=== PATIENT | female | born 1995 | race African-American/Black ===

== ENCOUNTER 2016-12-18 10:17 | Emergency (ER) | payer MEDICAID ==
[~2016-12-18 10:17] MED LIST: MACR100C2 PO; PREN1TAB63 PO; VENTAER INH; ZOFR8TAB4 SL
--- NOTE | 2016-12-18 10:52 | PD ---
HPI Chief Complaint Haven't felt baby move Date Seen: Dec 18, 2016 Time Seen: 10:46 (Niels Durán MD R2) Travel History International Travel<30 Days: No Contact w/Intl Traveler<30Days: No Known Affected Area: No (Niels Durán MD R2) History of Present Illness HPI 21-year-old at roughly 17 weeks gestational age based on last menstrual period of uncertain time but possibly around August 20. She presents today because she is and has not been able to feel the baby move thus far. Reportedly, She has called [facility] and [facility] and has not been able to get an appointment. No vaginal bleeding, no loss of fluid. Para: 1 : 2 (Niels Durán MD R2) History Past Medical History Narrative Medical Asthma (Niels Durán MD R2) Obstetric History Obstetric History First : at 38 weeks secondary to likely preeclampsia ( however patient is not sure, but this is consistent with her story). (Niels Durán MD R2) Past Surgical History Narrative Surgical 1 (Niels Durán MD R2) Family History Family History: Negative (Niels Durán MD R2) Social History Alcohol Use: No Tobacco Use: No Substance Abuse: No (iNels Durán MD R2) Allergies-Medications (Allergen,Severity, Reaction): Coded Allergies: No Known Allergies (Unverified , 12/18/16) Home Meds Active Scripts Albuterol 18 GM Inh (Ventolin Hfa 18 GM Inh)90 Mcg/Act Aer2 Puff INH Q4-6H PRN ( SHORTNESS OF BREATH) #1 INHALER Ref 0 Prov:Lenin Roque MD 09/26/16 Multivit-Min W/Fe-FA ( Vitamins 0.8 mg)1 Tab Tab1 Tab PO DAILY 30 Days Prov:Lenin Roque MD 09/26/16 Discontinued Scripts Ondansetron Odt (Zofran Odt)8 Mg Tab8 Mg SL Q8H PRN (NAUSEA OR VOMITING) #10 TAB Ref 0 Prov:Nahomi García MD 10/09/16 Nitrofurantoin Monohydrate Macrocrystals (Macrobid)100 Mg Dpl350 Mg PO BID 7 Days Ref 0 Prov:Aime Baker MD 10/09/16 Physical Exam Narrative GENERAL: Well-nourished, well-developed patient. SKIN: Warm and dry. HEAD: Normocephalic and atraumatic. EYES: No scleral icterus. No injection or drainage. ENT: No nasal drainage noted. Mucous membranes pink. Airway patent. NECK: Supple, trachea midline. No JVD. CARDIOVASCULAR: Regular rate and rhythm without murmurs, gallops, or rubs. RESPIRATORY: Breath sounds equal bilaterally. No accessory muscle use. ABDOMEN/GI: Abdomen soft, non-tender, bowel sounds present, no rebound, no guarding. Gravid to 16 weeks EXTREMITIES: No cyanosis or edema. BACK: Nontender without obvious deformity. No CVA tenderness. NEUROLOGICAL: Awake and alert. Motor and sensory grossly within normal limits. Five out of 5 muscle strength in all muscle groups. Normal speech. (Niels Durán MD R2) Data Data Vital Signs Reviewed: Yes (Niels Durán MD R2) [facility] Medical Record Reviewed: Yes Interpretation(s) 21-year-old at roughly 16-17 weeks gestational age presents because she has not felt her baby move. However, she has not filled her baby move this entire and this is common given how early she is. 1. Intrauterine Bedside Doppler Patient given instructions to follow-up with [facility] or [facility] or other OB provider of her choice. Discussed with Dr. Banuelos (Niels Durán MD R2) Attending Attestation Patient seen and evaluated with resident under direct supervision, agree with assessment and plan. (Sp Ravi MD) Diagnosis Diagnosis: Primary Impression: First trimester Disposition: DISCHARGE HOME Condition: Good Niels Durán MD R2 Dec 18, 2016 10:52 Sp Ravi MD Dec 18, 2016 12:10
[2016-12-18 10:57] VITALS: RESP 18; TEMP 98.5
[2016-12-18 10:58] VITALS: BP 119/65; PULSE 104
--- NOTE | 2016-12-18 12:03 | HHI.FPPN ---
Addendum to progress note ADDENDUM Reason for addendum: Additonal documentation Additional information heart tones verified at 140 bpm labs drawn Patient given instructions to follow with [facility] (Niels Durán MD R2) Niels Durán MD R2 Dec 18, 2016 12:03 Sp Ravi MD Dec 18, 2016 12:11
[2016-12-18 14:04] LABS: AUTOMATED NEUTROPHIL # 3.8 TH/MM3 (1.8-7.7); BASOPHIL % 0.5 % (0.0-2.0); EOSINOPHIL # 0.1 TH/MM3 (0-0.4); EOSINOPHIL % 1.8 % (0.0-4.0); HEMATOCRIT 32.6 % (35.0-46.0); HEMO FLAGS DIFF FINAL; LYMPH % 30.2 % (9.0-44.0); LYMPHOCYTE # 1.9 TH/MM3 (1.0-4.8); MEAN CELL VOLUME 81.3 FL (80.0-100.0); MEAN CORPUSCULAR HEMOGLOBIN 26.2 PG (27.0-34.0); MEAN CORPUSCULAR HGB CONC 32.2 % (32.0-36.0); MONO % 8.3 % (0.0-8.0); NEUT % 59.2 % (16.0-70.0); PLATELET COUNT 219 TH/MM3 (150-450); RED BLOOD COUNT 4.01 MIL/MM3 (4.00-5.30); RED CELL DISTRIBUTION WIDTH 17.4 % (11.6-17.2); WHITE BLOOD COUNT 6.3 TH/MM3 (4.0-11.0)
[2016-12-18 14:48] LABS: RUBELLA STATUS IMMUNE (IMMUNE)
[2016-12-21 15:14] LABS: RAPID PLASMA REAGIN SCREEN NON-REACTIVE (NON-REACTVE)
[2017-04-05] MEDS ORDERED: FERRTAB2 PO (10:50)
== END 2016-12-18 12:19 | disposition home or self-care (01) ==
LOC: HOBED 10:17
DX: Z03.79 Encounter for other suspected maternal and fetal conditions ruled out (principal); Z3A.17 17 weeks gestation of pregnancy
CPT/HCPCS: 36415; 80074; 85025; 86592; 86703; 86762; 86850; 86900; 86901

== ENCOUNTER 2017-03-30 20:43 | Emergency (ER) | payer MEDICAID ==
[~2017-03-30 20:43] MED LIST changes: -MACR100C2 PO; -ZOFR8TAB4 SL
--- NOTE | 2017-03-30 21:43 | PD ---
HPI Chief Complaint Low back pain Date Seen: March 30, 2017 Time Seen: 21:40 Travel History International Travel<30 Days: No Contact w/Intl Traveler<30Days: No Known Affected Area: No History of Present Illness HPI 21-year-old female who is at 32 weeks and 1 day comes in complaining of low back pain with radiation to the left lower quadrant for the past several days. Patient points to the lower sacral area and states that it hurts worse when she walks and when she is standing for long periods time. Denies vaginal bleeding or contractions. Patient sees [facility] and states that she recently failed her 1 hour glucose tolerance test and she is set to take a three -hour glucose tolerance. Last went almost to term but ended in a section Para: 1 : 2 History Past Medical History Narrative Medical Mild asthma on no medication Obstetric History Obstetric History section Past Surgical History Narrative Surgical Family History Family History: Negative Social History Alcohol Use: No Tobacco Use: No Substance Abuse: No Allergies-Medications (Allergen,Severity, Reaction): Coded Allergies: No Known Allergies (Unverified , 12/18/16) Home Meds Active Scripts Albuterol 18 GM Inh (Ventolin Hfa 18 GM Inh)90 Mcg/Act Aer2 Puff INH Q4-6H PRN ( SHORTNESS OF BREATH) #1 INHALER Ref 0 Prov:Lenin Roque MD 09/26/16 Multivit-Min W/Fe-FA ( Vitamins 0.8 mg)1 Tab Tab1 Tab PO DAILY 30 Days Prov:Lenin Roque MD 09/26/16 Review of Systems Except as stated in HPI: all other systems reviewed are Neg Physical Exam Narrative GENERAL: Well-nourished, well-developed patient. SKIN: Warm and dry. HEAD: Normocephalic and atraumatic. EYES: No scleral icterus. No injection or drainage. ENT: No nasal drainage noted. Mucous membranes pink. Airway patent. NECK: Supple, trachea midline. No JVD. CARDIOVASCULAR: Regular rate and rhythm without murmurs, gallops, or rubs. RESPIRATORY: Breath sounds equal bilaterally. No accessory muscle use. BREASTS: Bilateral exam showed no masses , no retractions, no nipple discharge. ABDOMEN/GI: Abdomen soft, non-tender, bowel sounds present, no rebound, no guarding Gravid to [-32] weeks size Fundal Height: [-] GENITOURINARY: External Genitalia: intact and normal in appearance BUS glands: [-Normal] speculum examination notes no discharge or bleeding and fibronectin was collected Cervix: [Closed-] Dilatation: [Closed-] Effacement: [-0%] Station: [--3] Presentation: [-Vertex] Membranes: [intact ] Uterine Contractions: [-Irritability] FHT's: Category: [1-] Baseline: 140 Reactive: Moderate Variability: Moderate Decels: Absent EXTREMITIES: No cyanosis or edema. BACK: Nontender without obvious deformity. No CVA tenderness. NEUROLOGICAL: Awake and alert. Motor and sensory grossly within normal limits. Five out of 5 muscle strength in all muscle groups. Normal speech. Data Data Labs Laboratory Tests Test 03/30/17 03/30/17 21:30 21:50 Fibronectin NEGATIVE Urine Color YELLOW Urine Turbidity CLEAR Urine pH 6.5 Urine Specific [place] 1.036 Urine Protein 30 mg/dL Urine Glucose (UA) NEG mg/dL Urine Ketones TRACE mg/dL Urine Occult Blood MOD Urine Nitrite NEG Urine Bilirubin NEG Urine Urobilinogen 4.0 MG/DL Urine Leukocyte Esterase NEG Urine RBC 87 /hpf Urine WBC 1 /hpf Urine Squamous Epithelial 1 /hpf Cells Urine Mucus MOD /lpf Microscopic Urinalysis Comment CULT NOT INDICATED MDM Plan 21 yo female at 32 weeks negative FFN with musculoskeletal pain. Some RBC' s in urine but patient is now significantly improved after Tylenol Will call in Macrobid and Flexeril Patient is transferring care to [facility] due to concerns regarding her abnormal 1hr GTT Diagnosis Diagnosis: Primary Impression: 32 weeks gestation of Additional Impressions: Back pain affecting in third trimester Hematuria due to cystitis Disposition: DISCHARGE HOME Scripts Cyclobenzaprine (Flexeril)10 Mg Tab10 Mg PO BID #20 TAB Ref 20 Prov:Diamond Ledesma MD 03/30/17 Nitrofurantoin Monohydrate Macrocrystals 100 Mg [id number] Mg PO BID #14 CAP Ref 0 Prov:Diamond Ledesma MD 03/30/17 Diamond Ledesma MD March 30, 2017 21:43
[2017-03-30] MEDS ORDERED: ACETAMINOPHEN 325 MG TAB PO ONE (21:45)
[2017-03-30 22:11] LABS: BLOOD, URINE MOD (NEG); COMMENT (UR) CULT NOT INDICATED; CULTURE IF INDICATED CULT NOT INDICATED; GLUCOSE,URINE NEG (NEG); KETONE, URINE TRACE mg/dL (NEG); MUCUS URINE MOD /lpf (OCC); NITRITE,URINE NEG (NEG); PH, URINE 6.5 (5.0-8.5); SQUAMOUS EPITHELIAL CELL URINE 1 /hpf (0-5); URINE COLOR YELLOW (YELLW/STRAW)
[2017-03-30] MEDS ORDERED: CYCL1TAB29 PO (22:54)
[2017-03-30] MEDS ORDERED: NITR100C4 PO (22:54)
[2017-04-05] MEDS ORDERED: FERRTAB2 PO (10:50)
== END 2017-03-30 23:30 | disposition home or self-care (01) ==
LOC: HOBED 20:43
DX: O23.13 Infections of bladder in pregnancy, third trimester (principal); Z3A.32 32 weeks gestation of pregnancy
CPT/HCPCS: 81001; 82731; 99284

== ENCOUNTER 2017-05-09 08:19 | Inpatient (IN) | payer MEDICAID ==
[2017-05-09] VITALS (26 sets, daily range): BP systolic 111–140; BP diastolic 62–83; PULSE 53–125; RESP 14–19; TEMP 97.4–98.3; O2SAT 95–100
[2017-05-09] MEDS ORDERED: LACTATED RINGER'S 1000 ML INJ 1,000 ML IV SCH ×3 (09:02→16:43)
[2017-05-09] MEDS ORDERED: LACTATED RINGER'S 1000 ML INJ 1,000 ML IV ONE (09:41)
[2017-05-09] MEDS ORDERED: OXYTOCIN 10 UNIT/ML AMP ONE (09:55)
[2017-05-09] MEDS ORDERED: ceFAZolin INJ 1,000 MG VIAL ONE (09:55)
--- NOTE | 2017-05-09 09:56 | HHI.HP ---
History & Physical H&P [facility] Patient Name: Fina Melendez Unit Number: [id number] Date of : 1995 Patient Status: Registered Emergency Room Attending Doctor: Faby Mullen MD HPI HPI Chief Complaint contractions Date Seen: May 09, 2017 Travel History International Travel<30 Days: No Contact w/Intl Traveler<30Days: No Known Affected Area: No History of Present Illness HPI This is a 22y/o at 37w6d with previous c/s who presents to the [facility] with c/o contractions since 3am, she denies vaginal bleeding or leakage of fluid with reports of active movements. She denies vaginal bleeding or leakage of fluid with reports of active movements. Pt declining . care with [facility], complicated by: 1. young multigravida 2. previous c/s times 1 3. previous complicated by PreE 4. transfer in at 33w from [facility] 5. abn 1 hr glucose, normal 3 hour glucose Para: 1 : 2 History (Limited) History Past Medical History Narrative Medical Asthma: no medication Obstetric History Obstetric History 03/23/2014 Primary c/s with PreE, male 6lb9oz Past Surgical History Narrative Surgical h/o c/s Family History Family History: Negative Social History Alcohol Use: No Tobacco Use: No Substance Abuse: No Allergies-Medications Allergies-Medications (Allergen,Severity, Reaction): Coded Allergies: No Known Allergies (Unverified , 05/04/17) Home Meds Discontinued Scripts Multi-Vit/Iron-Folic [id number] C (Ferralet)90-1-0.012-120 mg Tab1 Tab PO DAILY #30 BOTTLE Ref 6 Prov:Danika Darden CNM EDUCATION INSTRUCTOR 04/05/17 Multivit-Min W/Fe-FA ( Vitamins 0.8 mg)1 Tab Tab1 Tab PO DAILY 30 Days Prov:Lenin Roque MD 09/26/16 ROS Review of Systems Except as stated in HPI: all other systems reviewed are Neg Physical Exam Physical Exam Narrative GENERAL: Well-nourished, well-developed patient. SKIN: Warm and dry. HEAD: Normocephalic and atraumatic. EYES: No scleral icterus. No injection or drainage. ENT: No nasal drainage noted. Mucous membranes pink. Airway patent. NECK: Supple, trachea midline. No JVD. CARDIOVASCULAR: Regular rate and rhythm without murmurs, gallops, or rubs. RESPIRATORY: Breath sounds equal bilaterally. No accessory muscle use. BREASTS: Bilateral exam showed no masses , no retractions, no nipple discharge. ABDOMEN/GI: Abdomen soft, non-tender, bowel sounds present, no rebound, no guarding Gravid to 38 weeks size GENITOURINARY: External Genitalia: intact and normal in appearance VE per RN: 1/70/-3 to 2-3/80/-1 Uterine Contractions: q 1-2 minutes FHT's: EXTREMITIES: No cyanosis or edema. BACK: Nontender without obvious deformity. No CVA tenderness. NEUROLOGICAL: Awake and alert. Motor and sensory grossly within normal limits. Five out of 5 muscle strength in all muscle groups. Normal speech. Data Data Data Vital Signs Reviewed: Yes Orders Vital Signs (Adult) .ON ADMISSION (05/09/17 09:02) ^ Labor Status (05/09/17 09:02) Urinalysis - C+S If Indicated (05/09/17 09:02) Lactated Ringer's 1000 Ml Inj (Lr 1000 M (05/09/17 09:02) Admit To Inpatient (05/09/17 ) Code Status (05/09/17 09:41) Vital Signs (Adult) .ON ADMISSION (05/09/17 09:41) Activity Oob Ad Nini (05/09/17 09:41) Heart (05/09/17 09:41) Urinary Catheter Management DELPHINE.Q8H (05/09/17 09:41) ^ Preps (05/09/17 09:41) Scd / Yunior / Foot Pump DELPHINE.QSHIFT (05/09/17 09:41) ^ Ultrasound For Locatio (05/09/17 09:41) Diet Npo (05/09/17 Breakfast) Lactated Ringer's 1000 Ml Inj (Lr 1000 M (05/09/17 09:41) Lactated Ringer's 1000 Ml Inj (Lr 1000 M (05/09/17 10:11) Citric Acid-Sodium Citrate Liq (Bicitra (05/09/17 11:15) Type And Screen (05/09/17 09:41) Complete Blood Count With Diff (05/09/17 09:41) Cefazolin Inj (Ancef Inj) (05/09/17 10:45) Inpatient Certification (05/09/17 ) MDM MDM Medical Record Reviewed: Yes Narrative Course / MDM 22y/o at 37w6d with previous c/s in labor for repeat c/s. -reassuring status Plan -admit for delivery -preop -Dr. Simms aware of admission Diagnosis Diagnosis: Primary Impression: Previous delivery affecting Additional Impression: 38 weeks gestation of Scripts No Active Prescriptions or Reported Meds Faby Mullen MD May 09, 2017 09:45 Faby Mlulen MD May 09, 2017 09:56
[2017-05-09 10:03] LABS: AUTOMATED NEUTROPHIL # 3.9 TH/MM3 (1.8-7.7); BASOPHIL % 0.2 % (0.0-2.0); EOSINOPHIL # 0.1 TH/MM3 (0-0.4); EOSINOPHIL % 1.2 % (0.0-4.0); HEMATOCRIT 32.6 % (35.0-46.0); HEMO FLAGS DIFF FINAL; LYMPH % 27.7 % (9.0-44.0); LYMPHOCYTE # 1.8 TH/MM3 (1.0-4.8); MEAN CELL VOLUME 78.5 FL (80.0-100.0); MEAN CORPUSCULAR HEMOGLOBIN 25.3 PG (27.0-34.0); MEAN CORPUSCULAR HGB CONC 32.2 % (32.0-36.0); MONO % 11.2 % (0.0-8.0); NEUT % 59.7 % (16.0-70.0); PLATELET COUNT 213 TH/MM3 (150-450); RED BLOOD COUNT 4.15 MIL/MM3 (4.00-5.30); RED CELL DISTRIBUTION WIDTH 17.9 % (11.6-17.2); WHITE BLOOD COUNT 6.5 TH/MM3 (4.0-11.0)
[2017-05-09 10:07] LABS: BACTERIA, URINE OCC /hpf; BLOOD, URINE NEG (NEG); COMMENT (UR) CULT NOT INDICATED; CULTURE IF INDICATED CULT NOT INDICATED; GLUCOSE,URINE NEG (NEG); KETONE, URINE 10 mg/dL (NEG); MUCUS URINE FEW /lpf (OCC); NITRITE,URINE NEG (NEG); PH, URINE 6.5 (5.0-8.5); SQUAMOUS EPITHELIAL CELL URINE 3 /hpf (0-5); URINE COLOR YELLOW (YELLW/STRAW)
[2017-05-09] MEDS ORDERED: CITRIC ACID-SODIUM CITRATE LIQ 30 ML UDC PO SCH (11:15)
[2017-05-09] MEDS ORDERED: MORPHINE SULFATE PF 5 MG/10 ML VIAL ONE (11:41)
[2017-05-09] MEDS ORDERED: ONDANSETRON HCL 4 MG/2 ML VIAL ONE (11:41)
[2017-05-09] MEDS ORDERED: SODIUM CHLORIDE 0.9% FLUSH 10 ML FLUSH IV FLUSH PRN (11:45)
[2017-05-09] MEDS ORDERED: DOCUSATE SODIUM 50 MG/SENNA 8.6 MG TAB PO PRN (11:45)
[2017-05-09] MEDS ORDERED: ONDANSETRON HCL 4 MG/2 ML VIAL IV PUSH PRN (11:45)
[2017-05-09] MEDS ORDERED: KETOROLAC TROMETHAMINE 60 MG/2 ML (IM) VIAL IM PRN (11:45)
[2017-05-09] MEDS ORDERED: SIMETHICONE 80 MG CHEWABLE TAB PO PRN (11:45)
[2017-05-09] MEDS ORDERED: OXYTOCIN 30 UNITS-500ML PREMIX 500 ML IV ONE (11:45)
[2017-05-09] MEDS ORDERED: ZOLPIDEM TARTRATE 5 MG TAB PO PRN (11:45)
[2017-05-09] MEDS ORDERED: METOCLOPRAMIDE HCL 10 MG/2 ML VIAL ONE (12:51)
[2017-05-09] MEDS ORDERED: OXYTOCIN 30 UNITS-500ML PREMIX 500 ML ONE (12:51)
[2017-05-09] MEDS ORDERED: EPIDURAL-DIPHENHYDRAMINE HCL 50 MG/ML VIAL IV PUSH PRN (13:30)
[2017-05-09] MEDS ORDERED: EPIDURAL-DO NOT ADMINISTER ANTICOAGULANTS PRN (13:30)
[2017-05-09] MEDS ORDERED: EPIDURAL-NALOXONE HCL 0.4 MG/ML AMP IV PRN (13:30)
[2017-05-09] MEDS ORDERED: EPIDURAL-NO SYSTEMIC NARCOTICS PRN (13:30)
[2017-05-09] MEDS ORDERED: EPIDURAL-DIPHENHYDRAMINE HCL 50 MG CAP PO PRN (13:30)
[2017-05-09] MEDS ORDERED: LORazepam 2 MG/ML VIAL IV PUSH PRN (13:45)
[2017-05-09] MEDS ORDERED: METOCLOPRAMIDE HCL 10 MG/2 ML VIAL IV ONE (14:00)
[2017-05-09 14:03] LABS: AMPHETAMINE, URINE NEG (NEG); BARBITURATES, URINE NEG (NEG); COCAINE, URINE NEG (NEG)
--- NOTE | 2017-05-09 18:03 | MP ---
cc: KRISTI SIMMS MD DATE OF SURGERY 05/09/2017 PREOPERATIVE DIAGNOSIS 38 weeks intrauterine , previous section in labor refuses vaginal after section. POSTOPERATIVE DIAGNOSIS 38 weeks intrauterine , previous section in labor refuses vaginal after section. OPERATION Repeat low transverse section. SURGEON Ronen Simms MD ANESTHESIA Spinal. PREOPERATIVE NOTE The patient is a 22-year-old black female, G2, P1 previous section, now at 38 weeks tomorrow who presents in labor. She is 2-3 cm, 80% effaced and regular contractions. She refuses vaginal after section after counseling and wants her repeat section. PROCEDURE DETAILS The patient was taken to the operating room and placed supine position on the operating table. With adequate spinal anesthesia administered she was prepped and draped for abdominal surgery. Her previous Pfannenstiel incision was excised out and cast off the table. The incision carried to the fascia sharply. The fascia incised laterally without difficulty. The fascia reflected off of the rectus muscles and the peritoneal cavity entered sharply in the midline. The incision is extended superiorly and inferiorly. The bladder flap was incised and the visceral peritoneum reflected back off the lower uterine segment and placed on bladder blade. A transverse hysterotomy is made and extended bluntly bilaterally. Clear fluid noted at that time. A male infant was delivered at 10:57 a.m. Apgars of 9 and 9 and weight 2480 grams. There were no complications. Loose nuchal cord noted. The baby delivered and handed to waiting nursery staff without complication. The cord blood obtained. Placenta was manually extracted. The uterus cleaned of all remnants of clots and membranes. The uterus exteriorized. The hysterotomy closed with a running layer of Chromic followed by imbricating suture the same. Hemostasis was achieved with a couple of stick ties. The bladder flap was reapproximated using 2-0 Vicryl in a running suture. The uterus elevated and blood suctioned from the cul-de-sac and gutters and the uterus was replaced in the peritoneal cavity. The parietal peritoneum closed in a running layer of 2-0 Vicryl. The rectus muscles reapproximated with several stick ties of chromic. Fascia closed in a running layer 0 Vicryl. Subcutaneous tissue was reapproximated in a running layer of 3-0 plain gut. Skin closed with subcuticular stitch of 3-0 Monocryl. A pressure dressing applied. Estimated blood loss 500 cc. No complications. Sponge, needle counts correct times two. The patient taken to the recovery room in stable condition. The baby to well baby nursery. MD QI Fowler/ARLETH /11:46 AM /5:42 PM
[2017-05-09] MEDS ORDERED: SODIUM CHLORIDE 0.9% FLUSH 10 ML FLUSH IV FLUSH SCH (21:00)
[2017-05-09] MEDS ORDERED: OXYTOCIN 30 UNITS-500ML PREMIX 500 ML IV PRN (21:45)
[2017-05-10 02:20] VITALS: BP 127/87; PULSE 85; RESP 16; TEMP 97.9
[2017-05-10] MEDS: oxyCODONE/ACETAMINOPHEN 5 MG/325 MG TAB PO PRN ×2 (02:21→22:35)
[2017-05-10] MEDS: IBUPROFEN 600 MG TAB PO PRN ×3 (02:22→17:21)
[2017-05-10 06:02] LABS: AUTOMATED NEUTROPHIL # 5.7 TH/MM3 (1.8-7.7); BASOPHIL % 0.2 % (0.0-2.0); EOSINOPHIL % 0.3 % (0.0-4.0); HEMO FLAGS DIFF FINAL; LYMPHOCYTE # 1.1 TH/MM3 (1.0-4.8); MEAN CELL VOLUME 79.1 FL (80.0-100.0); MEAN CORPUSCULAR HEMOGLOBIN 25.7 PG (27.0-34.0); MEAN CORPUSCULAR HGB CONC 32.5 % (32.0-36.0); MONO % 9.5 % (0.0-8.0); PLATELET COUNT 180 TH/MM3 (150-450); RED BLOOD COUNT 3.42 MIL/MM3 (4.00-5.30); RED CELL DISTRIBUTION WIDTH 17.9 % (11.6-17.2); WHITE BLOOD COUNT 7.6 TH/MM3 (4.0-11.0)
--- NOTE | 2017-05-10 06:36 | HHI.OB ---
Subjective Remarks No acute issues overnight. Vitals are stable, patient remains afebrile. Vaginal bleeding is decreasing and pain is well-controlled. She is ambulating without difficulty, voiding and stooling. She denies any chest pain, shortness of breath, or leg pain. She is bonding well with . Objective Vitals/I&O Vital Signs Date Time Temp Pulse Resp B/P Pulse Ox O2 Delivery O2 Flow Rate FiO2 05/10/17 02:20 97.9 85 16 127/87 05/09/17 23:45 121/75 05/09/17 23:45 97.9 65 14 05/09/17 19:50 98.3 73 16 127/83 05/09/17 17:00 97.4 72 18 117/75 05/09/17 13:29 55 18 121/72 05/09/17 13:29 97.8 05/09/17 13:00 54 16 124/67 98 05/09/17 12:45 69 18 140/69 98 05/09/17 12:30 53 19 129/66 100 05/09/17 12:15 99 05/09/17 12:15 108 16 124/81 05/09/17 12:00 114/64 05/09/17 12:00 62 05/09/17 12:00 18 97 05/09/17 11:45 57 16 111/62 05/09/17 11:45 98.1 16 95 05/09/17 10:15 67 05/09/17 10:10 69 05/09/17 10:00 69 05/09/17 09:55 74 05/09/17 09:50 72 05/09/17 09:40 98 05/09/17 09:35 63 05/09/17 09:30 74 05/09/17 09:25 64 05/09/17 09:20 77 05/09/17 09:15 60 05/09/17 09:10 70 05/09/17 09:05 70 05/09/17 09:00 65 05/09/17 08:55 91 05/09/17 08:45 125 Result Diagram: 05/10/17 0555 Objective Remarks GENERAL: Well-nourished, well-developed patient. CARDIOVASCULAR: Regular rate and rhythm without murmurs, gallops, or rubs. RESPIRATORY: Breath sounds equal bilaterally. No accessory muscle use. ABDOMEN/GI: Abdomen soft, non-tender, bowel sounds present. Incision: Clean, dry and intact. Fundus: Firm, non-tender at umbilicus. GENITOURINARY: Light to moderate bleeding. EXTREMITIES: No cyanosis or edema, non-tender, without signs of DVT. Medications and IVs Current Medications Medications (Trade) Dose Ordered Sig/Clinton Route Start Time Stop Time Status Last Admin (Lr 1000 ml Inj) 1,000 ml @ 100 mls/hr Q10H IV 05/09/17 16:43 05/10/17 12:42 (NS Flush) 2 ml BID IV FLUSH 05/09/17 21:00 (NS Flush) 2 ml UNSCH PRN IV FLUSH 05/09/17 11:45 (Mylicon Chew) 80 mg QID PRN PO 05/09/17 11:45 (Tylenol) 650 mg Q6H PRN PO 05/09/17 11:45 (Motrin) 600 mg Q6H PRN PO 05/09/17 11:45 05/10/17 02:22 (Toradol Inj) 30 mg Q6H PRN IM 05/09/17 11:45 05/10/17 11:44 (Percocet 5-325 Mg) 1 tab Q4H PRN PO 05/09/17 11:45 (Percocet 5-325 Mg) 2 tab Q4H PRN PO 05/09/17 11:45 05/10/17 02:21 (Abigail-Colace) 2 tab Q12H PRN PO 05/09/17 11:45 (Ambien) 5 mg HS PRN PO 05/09/17 11:45 (M-M-R Ii Inj) 0.5 ml ONCE ONCE SQ 05/10/17 16:00 05/10/17 16:01 (Boostrix Inj) 0.5 ml ONCE ONCE IM 05/10/17 16:00 05/10/17 16:01 (Zofran Inj) 4 mg Q6H PRN IV PUSH 05/09/17 11:45 Miscellaneous Information NO SYSTEMIC NARCOTICS TO BE GIVEN FO... UNSCH PRN .XX 05/09/17 13:30 05/10/17 14:00 (Narcan Inj) 0.4 mg UNSCH PRN IV 05/09/17 13:30 05/10/17 14:00 (Benadryl Inj) 25 mg Q6H PRN IV PUSH 05/09/17 13:30 05/10/17 14:00 (Benadryl) 50 mg Q6H PRN PO 05/09/17 13:30 05/10/17 14:00 Miscellaneous Information ALL NURSING DEPARTMENTS UNSCH PRN .XX 05/09/17 13:30 05/10/17 14:00 (Ativan Inj) 1 mg Q6H PRN IV PUSH 05/09/17 13:45 Assessment/Plan Problem List: (1) delivery delivered Assessment and Plan 22 y/o female who is POD# 1 s/p CXN. -Continue routine care. -Percocet and Motrin PRN pain. -Encouraged OOB. Advised pelvic rest for 6 wks. Will need a f/u appt. in 1 wk for incision check. -Re: ctrl, she would like an IUD. -D/c in 1-[address] MD R2 May 10, 2017 06:36
[2017-05-10 08:00] VITALS: BP 113/77; PULSE 86; RESP 20; TEMP 97.5
[2017-05-10] MEDS: ACETAMINOPHEN 325 MG TAB PO PRN ×2 (11:15→17:21)
[2017-05-10] MEDS ORDERED: MEASLES, MUMPS, RUBELLA VACCINE 0.5 ML VIAL SQ ONE (16:00)
[2017-05-10] MEDS ORDERED: DIPHTH/TETANUS/ACEL PERTUSSIS (BOOSTER) 0.5 ML VIAL/PFS IM ONE (16:00)
[2017-05-10 19:13] VITALS: BP 128/83; PULSE 90; RESP 16; TEMP 98.7
[2017-05-11] MEDS: IBUPROFEN 600 MG TAB PO PRN ×4 (01:41→23:37)
[2017-05-11] MEDS: oxyCODONE/ACETAMINOPHEN 5 MG/325 MG TAB PO PRN ×4 (06:06→23:37)
--- NOTE | 2017-05-11 07:19 | HHI.OB ---
Subjective Post Operative Day: 2 Remarks POD#2. No acute issues overnight. Vitals are stable, patient remains afebrile. Vaginal bleeding is decreasing and pain is well-controlled on Percocet. She is ambulating without difficulty, voiding and stooling. She denies any chest pain , shortness of breath, or leg pain. She is bonding well with , feeding primarily via formula. She wants to go home today. (Zhanna Lobato MD R1) Objective Vitals/I&O Vital Signs Date Time Temp Pulse Resp B/P Pulse Ox O2 Delivery O2 Flow Rate FiO2 05/10/17 19:13 98.7 90 16 128/83 05/10/17 08:00 97.5 86 20 113/77 (Zhanna Lobato MD R1) Result Diagram: 05/10/17 0555 Objective Remarks GENERAL: Well-nourished, well-developed female in no apparent distress. CARDIOVASCULAR: Regular rate and rhythm without murmurs, gallops, or rubs. RESPIRATORY: Breath sounds equal bilaterally. No accessory muscle use. ABDOMEN/GI: Abdomen soft, non-tender, bowel sounds present. Incision: Clean, dry and intact. Steristrips in place. Fundus: Firm, non-tender at umbilicus. GENITOURINARY: Light to moderate bleeding. EXTREMITIES: No cyanosis or edema, non-tender, without signs of DVT. Medications and IVs Current Medications Medications (Trade) Dose Ordered Sig/[place] Route Start Time Stop Time Status Last Admin (NS Flush) 2 ml BID IV FLUSH 05/09/17 21:00 (NS Flush) 2 ml UNSCH PRN IV FLUSH 05/09/17 11:45 (Mylicon Chew) 80 mg QID PRN PO 05/09/17 11:45 (Tylenol) 650 mg Q6H PRN PO 05/09/17 11:45 05/10/17 17:21 (Motrin) 600 mg Q6H PRN PO 05/09/17 11:45 05/11/17 01:41 (Percocet 5-325 Mg) 1 tab Q4H PRN PO 05/09/17 11:45 05/11/17 06:06 (Percocet 5-325 Mg) 2 tab Q4H PRN PO 05/09/17 11:45 6/26/17 22:35 (Abigail-Colace) 2 tab Q12H PRN PO 05/09/17 11:45 (Ambien) 5 mg HS PRN PO 05/09/17 11:45 (Zofran Inj) 4 mg Q6H PRN IV PUSH 05/09/17 11:45 (Ativan Inj) 1 mg Q6H PRN IV PUSH 05/09/17 13:45 (Zhanna Lobato MD R1) Assessment/Plan Problem List: (1) delivery delivered Assessment and Plan 22 y/o female who is POD# 2 s/p CXN. -Continue routine care. -Percocet and Motrin PRN pain. -Encouraged OOB. Advised pelvic rest for 6 wks. Will need a f/u appt. in 1 wk for incision check. -Re: ctrl, she would like an IUD. -D/c today or tomorrow. Discussed with Dr. Carpio, PGY2. Will discuss with Dr. Ledesma, attending. ( Zhanna Lobato MD R1) Collaborating MD Comments Agree with management and care. Possible discharge today depending on status of baby. (Diamond Ledesma MD) Zhanna Loabto MD R1 May 11, 2017 07:19 Diamodn Ledesma MD May 11, 2017 09:04
[2017-05-11 07:55] VITALS: BP 124/82; PULSE 97; RESP 16; TEMP 98.6
[2017-05-11 19:55] VITALS: BP 124/87; PULSE 117; RESP 16; TEMP 99
[2017-05-12] MEDS: IBUPROFEN 600 MG TAB PO PRN ×2 (04:53→11:12)
[2017-05-12] MEDS: oxyCODONE/ACETAMINOPHEN 5 MG/325 MG TAB PO PRN (04:54)
[2017-05-12] MEDS ORDERED: IBUP-232 PO (07:11)
[2017-05-12] MEDS ORDERED: OXYC1TAB63 PO (07:11)
--- NOTE | 2017-05-12 07:23 | HHI.OB ---
Subjective Post Operative Day: 3 Remarks POD#3. No acute issues overnight. Vitals are stable, patient remains afebrile. Vaginal bleeding is minimal. Pain is well-controlled on Percocet. She is ambulating without difficulty, voiding and stooling. She denies any chest pain, shortness of breath, or leg pain. She is bonding well with , feeding primarily via formula. She wants to go home today. Objective Vitals/I&O Vital Signs Date Time Temp Pulse Resp B/P Pulse Ox O2 Delivery O2 Flow Rate FiO2 05/11/17 19:55 117 16 124/87 05/11/17 19:55 99.0 05/11/17 07:55 98.6 97 16 124/82 Result Diagram: 05/10/17 0555 Objective Remarks GENERAL: Well-nourished, well-developed female in no apparent distress. CARDIOVASCULAR: Regular rate and rhythm without murmurs, gallops, or rubs. RESPIRATORY: Breath sounds equal bilaterally. No accessory muscle use. ABDOMEN/GI: Abdomen soft, non-tender, bowel sounds present. Incision: Clean, dry and intact. Steristrips in place. Fundus: Firm, non-tender at umbilicus. GENITOURINARY: Light to moderate bleeding. EXTREMITIES: No cyanosis or edema, non-tender, without signs of DVT. Medications and IVs Current Medications Medications (Trade) Dose Ordered Sig/[place] Route Start Time Stop Time Status Last Admin (NS Flush) 2 ml BID IV FLUSH 05/09/17 21:00 (NS Flush) 2 ml UNSCH PRN IV FLUSH 05/09/17 11:45 (Mylicon Chew) 80 mg QID PRN PO 05/09/17 11:45 (Tylenol) 650 mg Q6H PRN PO 05/09/17 11:45 05/10/17 17:21 (Motrin) 600 mg Q6H PRN PO 05/09/17 11:45 05/12/17 04:53 (Percocet 5-325 Mg) 1 tab Q4H PRN PO 05/09/17 11:45 05/12/17 04:54 (Percocet 5-325 Mg) 2 tab Q4H PRN PO 05/09/17 11:45 05/10/17 22:35 (Abigail-Colace) 2 tab Q12H PRN PO 05/09/17 11:45 05/11/17 11:18 (Ambien) 5 mg HS PRN PO 05/09/17 11:45 (Zofran Inj) 4 mg Q6H PRN IV PUSH 05/09/17 11:45 (Ativan Inj) 1 mg Q6H PRN IV PUSH 05/09/17 13:45 Assessment/Plan Problem List: (1) delivery delivered Assessment and Plan 22 y/o female who is POD# 3 s/p CXN. -Continue routine care. -Percocet and Motrin PRN pain. Will give Percocet script for d/c -Encouraged OOB. Advised pelvic rest for 6 wks. Will need a f/u appt. in 1 wk for incision check. -Re: ctrl, she would like an IUD. -D/c today Discussed with Dr. Carpio, PGY2 and Dr. Simms, attending. Zhanna Lobato MD R1 May 12, 2017 07:23
[2017-05-12 08:00] VITALS: BP 119/72; PULSE 83; RESP 16; TEMP 98.1
--- NOTE | 2017-05-12 10:46 | HHI.DCPOC ---
Discharge Care Plan Diagnosis: (1) Previous delivery affecting (2) delivery delivered Report Symptoms to Your Doctor -Temperature above 100.5 degrees -Redness, of incision or excessive or foul smelling drainage -Unusual pain or calf pain -Increased vaginal bleeding -Painful or difficulty urinating -Feelings of extreme sadness or anxiety after 2 weeks Goals to Promote Your Health * To prevent worsening of your condition and complications * To maintain your health at the optimal level Directions to Meet Your Goals Take your medications as prescribed Follow your dietary instruction Follow activity as directed Ensure plenty of rest for recovery Drink fluids for hydration Keep your appointments as scheduled Take your immunizations and boosters as scheduled If your symptoms worsen call your PCP, if no PCP go to Urgent Care Center or Emergency Room Smoking is Dangerous to Your Health. Avoid second hand smoke Call the 24-hour crisis hotline for domestic abuse at Zhanna Lobato MD R1 May 12, 2017 10:45
[2017-05-13 08:47] LABS: BATH SALTS (MDPV) UR NEG (NEG); ECSTASY (MDMA) UR NEG (NEG); GABAPENTIN UR NEG (NEG); HEROIN (6-ACETYLMORPHINE) UR NEG (NEG); HYDROMORPHONE U NEG (NEG); K2 SPICE UR NEG (NEG); OBMETHADONE UR NEG (NEG); OXYCODONE (PERCODAN) NEG (NEG); PHENCYCLIDINE URINE NEG (NEG)
== END 2017-05-12 11:50 | disposition home or self-care (01) | DRG 766 ==
LOC: HOBED 08:19 → H2EB 09:48 → H1EA 15:01
PROVIDERS: ADMIT Obstetrics & Gynecology; ATTEND Obstetrics & Gynecology
PROC: 10D00Z1 Extraction of Products of Conception, Low, Open Approach (ICD-10-PCS; principal; 2017-05-09)
DX: O34.219 Maternal care for unspecified type scar from previous cesarean delivery (principal); F41.9 Anxiety disorder, unspecified; Z37.0 Single live birth; O99.344 Other mental disorders complicating childbirth; O99.52 Diseases of the respiratory system complicating childbirth; J45.909 Unspecified asthma, uncomplicated; Z3A.38 38 weeks gestation of pregnancy
CPT/HCPCS: 80307; 81001; 85025; 86850; 86900; 86901; 99285; G0481; J0690; J2274; J2405; J2590; J2765; J7120

== ENCOUNTER 2017-06-14 09:31 | Emergency (ER) | payer MEDICAID ==
[~2017-06-14] VITALS: Ht 157.5 cm; Wt 65.0 kg
[~2017-06-14 09:31] MED LIST changes: +IBUP-232 PO; +OXYC1TAB63 PO; -PREN1TAB63 PO; -VENTAER INH
[2017-06-14 09:33] VITALS: BP 138/69; PULSE 115; RESP 17; TEMP 98.2; O2SAT 98
[2017-06-14 09:49] VITALS: BP 115/57; PULSE 107; RESP 16; O2SAT 100
[2017-06-14] MEDS ORDERED: SODIUM CHLOR 0.9% 1000 ML INJ 1,000 ML IV SCH (09:50)
[2017-06-14] MEDS ORDERED: ONDANSETRON HCL 4 MG/2 ML VIAL IVP ONE (10:00)
[2017-06-14] MEDS ORDERED: SODIUM CHLORIDE 0.9% FLUSH 10 ML FLUSH IV FLUSH PRN (10:00)
[2017-06-14] MEDS ORDERED: MORPHINE SULFATE 4 MG/ML INJ IV PUSH ONE ×2 (10:00→12:45)
[2017-06-14 10:05] LABS: AUTOMATED NEUTROPHIL # 5.6 TH/MM3 (1.8-7.7); BASOPHIL % 0.4 % (0.0-2.0); EOSINOPHIL % 0.4 % (0.0-4.0); HEMATOCRIT 36.5 % (35.0-46.0); HEMO FLAGS DIFF FINAL; LYMPHOCYTE # 0.8 TH/MM3 (1.0-4.8); MEAN CELL VOLUME 77.3 FL (80.0-100.0); MEAN CORPUSCULAR HEMOGLOBIN 24.9 PG (27.0-34.0); MEAN CORPUSCULAR HGB CONC 32.2 % (32.0-36.0); MONO % 6.4 % (0.0-8.0); NEUT % 81.8 % (16.0-70.0); PLATELET COUNT 245 TH/MM3 (150-450); RED BLOOD COUNT 4.72 MIL/MM3 (4.00-5.30); RED CELL DISTRIBUTION WIDTH 19.2 % (11.6-17.2); WHITE BLOOD COUNT 6.8 TH/MM3 (4.0-11.0)
--- NOTE | 2017-06-14 10:06 | PD ---
HPI Chief Complaint: Abdominal Pain Time Seen by Provider: 09:44 Travel History International Travel<30 days: No Contact w/Intl Traveler<30days: No Traveled to known affect area: No History of Present Illness HPI Is a 22 year-old woman who presents to the emergency department complaining of severe lower abdominal pain, more on the left side, started about 2 AM last night. Denies ever having similar problems in the past. She just had a C- section done May 09. It was a repeat because of a previous C- section. Initial was done for preeclampsia. She apparently had been doing well. She is not prone to abdominal pain. She's never had kidney stones before. Denies ever having seen a doctor for abdominal pain. Starting last night about 2 AM she had the abrupt onset of severe low four-quadrant abdominal pain is been persistent. She also had persistent episodes of vomiting about every hour or so. She describes the pain is severe. She denies any urinary symptoms. Denies any vaginal bleeding or vaginal discharge. Denies any diarrhea or change in her stools. She is breast-feeding. Other than the 2 C- section she has not had any other abdominal surgery. History Past Medical History Narrative Medical Asthma Influenza Vaccination: No : 2 Para: 1 Social History Alcohol Use: No Tobacco Use: No Allergies-Medications (Allergen,Severity, Reaction): Coded Allergies: No Known Allergies (Unverified , 06/14/17) Reported Meds & Prescriptions Reported Meds & Active Scripts Active No Active Prescriptions or Reported Medications Review of Systems Except as stated in HPI: all other systems reviewed are Neg Physical Exam Narrative GENERAL: 22 year-old woman, appears very uncomfortable, tearful crying clutching her side. SKIN: Focused skin assessment warm/dry. NECK: Trachea midline. No JVD. CARDIOVASCULAR: Regular rate and rhythm. No murmur appreciated. RESPIRATORY: No accessory muscle use. Clear to auscultation. Breath sounds equal bilaterally. GASTROINTESTINAL: Abdomen is flat and soft. She is moderately four-quadrant tenderness with voluntary guarding. MUSCULOSKELETAL: No obvious deformities. No clubbing. No cyanosis. No edema. NEUROLOGICAL: Awake and alert. No obvious cranial nerve deficits. Motor grossly within normal limits. Normal speech. PSYCHIATRIC: Tearful and anxious. Data Data Last Documented VS Vital Signs Date Time Temp Pulse Resp B/P Pulse Ox O2 Delivery O2 Flow Rate FiO2 06/14/17 14:10 95 16 133/77 100 Room Air 06/14/17 09:33 98.2 Orders Beta Hcg (Quant/Titer) (06/14/17 09:50) Complete Blood Count With Diff (06/14/17 09:50) Comprehensive Metabolic Panel (06/14/17 09:50) Lipase (06/14/17 09:50) Urinalysis - C+S If Indicated (06/14/17 09:50) Ct Abd/Pel W/O Iv Contrast (06/14/17 09:50) Iv Access Insert/Monitor (06/14/17 09:50) Ecg Monitoring (06/14/17 09:50) Oximetry (06/14/17 09:50) Morphine Inj (Morphine Inj) (06/14/17 10:00) Ondansetron Inj (Zofran Inj) (06/14/17 10:00) Sodium Chlor 0.9% 1000 Ml Inj (Ns 1000 M (06/14/17 09:50) Sodium Chloride 0.9% Flush (Ns Flush) (06/14/17 10:00) Us Pelvis Comp W Doppler (06/14/17 ) Morphine Inj (Morphine Inj) (06/14/17 12:45) Sodium Chlor 0.9% 1000 Ml Inj (Ns 1000 M (06/14/17 14:00) Ketorolac Inj (Toradol Inj) (06/14/17 14:00) Labs Laboratory Tests Test 06/14/17 06/14/17 09:58 15:05 White Blood Count 6.8 TH/MM3 Red Blood Count 4.72 MIL/MM3 Hemoglobin 11.8 GM/DL Hematocrit 36.5 % Mean Corpuscular Volume 77.3 FL Mean Corpuscular Hemoglobin 24.9 PG Mean Corpuscular Hemoglobin 32.2 % Concent Red Cell Distribution Width 19.2 % Platelet Count 245 TH/MM3 Mean Platelet Volume 9.1 FL Neutrophils (%) (Auto) 81.8 % Lymphocytes (%) (Auto) 11.0 % Monocytes (%) (Auto) 6.4 % Eosinophils (%) (Auto) 0.4 % Basophils (%) (Auto) 0.4 % Neutrophils # (Auto) 5.6 TH/MM3 Lymphocytes # (Auto) 0.8 TH/MM3 Monocytes # (Auto) 0.4 TH/MM3 Eosinophils # (Auto) 0.0 TH/MM3 Basophils # (Auto) 0.0 TH/MM3 CBC Comment DIFF FINAL Differential Comment Sodium Level 137 MEQ/L Potassium Level 4.1 MEQ/L Chloride Level 108 MEQ/L Carbon Dioxide Level 17.5 MEQ/L Anion Gap 12 MEQ/L Blood Urea Nitrogen 14 MG/DL Creatinine 0.79 MG/DL Estimat Glomerular Filtration 111 ML/MIN Rate Random Glucose 88 MG/DL Calcium Level 9.2 MG/DL Total Bilirubin 0.4 MG/DL Aspartate Amino Transf 18 U/L (AST/SGOT) Alanine Aminotransferase 13 U/L (ALT/SGPT) Alkaline Phosphatase 97 U/L Total Protein 8.1 GM/DL Albumin 3.7 GM/DL Lipase 105 U/L Human Chorionic Gonadotropin, LESS THAN 1 Quant MIU/ML Urine Color YELLOW Urine Turbidity CLEAR Urine pH 6.0 Urine Specific [place] 1.022 Urine Protein NEG mg/dL Urine Glucose (UA) NEG mg/dL Urine Ketones 40 mg/dL Urine Occult Blood NEG Urine Nitrite NEG Urine Bilirubin NEG Urine Urobilinogen 2.0 MG/DL Urine Leukocyte Esterase NEG Urine RBC 1 /hpf Urine WBC 1 /hpf Urine Mucus FEW /lpf Microscopic Urinalysis Comment CULT NOT INDICATED MDM Medical Decision Making Medical Screen Exam Complete: Yes Emergency Medical Condition: Yes Interpretation(s) LABS: CBC is unremarkable. CMP unremarkable Lipase normal HCG negative UA unremarkable CT abdomen and pelvis: Tiny nonobstructing stone left kidney moderate amount of stool. Pelvis ultrasound simple cyst in the right ovary. Otherwise unremarkable. Differential Diagnosis Renal lithiasis, ovarian torsion, complication of , infection, other Narrative Course Medical decision making INITIAL: This a 22 year-old woman who appears very uncomfortable for sided abdominal pain. She is a fair amount of abdominal tenderness, more than expected for a kidney stone. Ovarian torsion seems possible. She has no other stool changes to suggest diverticulitis or colitis. We'll check UA, labs, ultrasound evaluate for ovarian torsion, and CT scan of the abdomen and pelvis to look for renal lithiasis. Reassess. FINAL: CT ultrasound and labs are unremarkable. Unclear etiology of her pain. No evidence of infection. Looks well. Possible ruptured ovarian cyst, possible strain or sprain. We'll recommend ibuprofen as needed. Outpatient follow-up. Diagnosis Primary Impression: Abdominal pain Additional Instructions: Take ibuprofen as needed for pain. Follow-up with your primary doctor in the next 2-3 days. Return to the emergency department for any new or worsening symptoms. Med/Other Pt SpecificInfo: No Change to Meds Scripts No Active Prescriptions or Reported Meds Disposition: 01 DISCHARGE HOME Condition: Stable Sp Cox MD Jun 14, 2017 10:06
[2017-06-14 10:24] LABS: ALT (GPT) 13 U/L (10-53)
[2017-06-14 10:25] LABS: ANION GAP 12 MEQ/L (5-15); AST (GOT) 18 U/L (15-37); BICARBONATE 17.5 MEQ/L (21.0-32.0); BLOOD UREA NITROGEN 14 MG/DL (7-18); CHLORIDE 108 MEQ/L (98-107); GLOMERULAR FILTRATION RATE 111 ML/MIN (>89); POTASSIUM 4.1 MEQ/L (3.5-5.1); SODIUM (NA) 137 MEQ/L (136-145)
[2017-06-14 10:27] LABS: ALKALINE PHOSPHATASE 97 U/L (45-117); BETA HCG QUANT LESS THAN 1 MIU/ML (0-5); TOTAL BILIRUBIN ADULT 0.4 MG/DL (0.2-1.0)
[2017-06-14 11:45] VITALS: BP 122/84; PULSE 93; RESP 16; O2SAT 100
--- NOTE | 2017-06-14 12:20 | RADRPT ---
EXAM DATE/TIME: 06/14/2017 10:06 [facility] COMPARISON: No previous studies available for comparison. INDICATIONS : Pelvic pain, post , post section one month. MEDICAL HISTORY : Pelvic pain. SURGICAL HISTORY : section. ENCOUNTER: Initial ACUITY: 1 day PAIN SCORE: 0/10 LOCATION: Bilateral pelvis MEASUREMENTS: UTERUS: 11.6 x 6.7 x 5.6 cm ENDOMETRIAL STRIPE: 8 mm RIGHT OVARY: 3.3 x 2.0 x 2.7 cm LEFT OVARY: 1.7 x 2.0 x 0.93 cm cm FINDINGS: UTERUS: The myometrium has homogeneous echotexture without mass. RIGHT OVARY: Ovary contains no mass or significant cystic lesion. A 2.4 cm simple cyst is noted involving the ovar y. Blood flow appreciated involving the ovary. LEFT OVARY: Ovary contains no mass or significant cystic lesion.Blood flow appreciated involving the ovary. MISCELLANEOUS: No free fluid. CONCLUSION: 1. 2.4 cm simple cyst involving the right ovary. Otherwise, unremarkable exam. David Wray Jr., MD on June 14, 2017 at 12:13 Board Certified Radiologist. This report was verified electronically.
--- NOTE | 2017-06-14 13:05 | RADRPT ---
EXAM DATE/TIME: 06/14/2017 12:15 [facility] COMPARISON: No previous studies available for comparison. INDICATIONS : Nausea,vomiting left lower quadrant pain. ORAL CONTRAST: No oral contrast ingested. RADIATION DOSE: 6.59 CTDIvol (mGy) MEDICAL HISTORY : asthma SURGICAL HISTORY : section. ENCOUNTER: Initial ACUITY: 2 days PAIN SCALE: 3/10 LOCATION: Left Abdomen TECHNIQUE: Volumetric scanning of the abdomen and pelvis was performed. Using automated exposure control and adjustment of the mA and/or kV according to patient size, radiation dose was kept as low as reasonably achievable to obtain optimal diagnostic quality images. DICOM format image data is av ailable electronically for review and comparison. FINDINGS: CT Abdomen: The liver, spleen, pancreas, left kidney, adrenals are unremarkable. There is no evidence for any appreciable pathological adenopathy, free fluid, or bowel obstruction. There is old fractur e of left L1 transverse process. There is a tiny 3 mm nonobstructing stone right kidney. There is no ureteral stone and there is no hydronephrosis on either side. CT pelvis: There is no evidence for mass, abscess formation, or any significant adenopathy within the pelvis. There is moderate amount of stool throughout the colon. A tampon is in place. There is moder ate amount of stool throughout the colon. CONCLUSION: Tiny nonobstructing stone left kidney and moderate amount of stool. Lily Solo MD on June 14, 2017 at 13:00 Board Certified Radiologist. This report was verified electronically.
[2017-06-14] MEDS ORDERED: SODIUM CHLOR 0.9% 1000 ML INJ 1,000 ML IV ONE (14:00)
[2017-06-14] MEDS ORDERED: KETOROLAC TROMETHAMINE 30 MG/ML (IVP) VIAL IVP ONE (14:00)
[2017-06-14 14:10] VITALS: BP 133/77; PULSE 95; RESP 16; O2SAT 100
[2017-06-14 15:24] LABS: BLOOD, URINE NEG (NEG); GLUCOSE,URINE NEG (NEG); KETONE, URINE 40 mg/dL (NEG); MUCUS URINE FEW /lpf (OCC); NITRITE,URINE NEG (NEG); URINE COLOR YELLOW (YELLW/STRAW)
[2017-06-14 15:27] LABS: COMMENT (UR) CULT NOT INDICATED; CULTURE IF INDICATED CULT NOT INDICATED
== END 2017-06-14 17:08 | disposition home or self-care (01) ==
LOC: NEPC 09:31
DX: R10.32 Left lower quadrant pain (principal)
CPT/HCPCS: 74176; 76856; 80053; 81001; 83690; 84702; 85025; 93975; 96361; 96374; 96375; 96376; 99285; J1885; J2270; J2405; J7030

== ENCOUNTER 2017-07-10 14:32 | Emergency (ER) | payer MEDICAID ==
[~2017-07-10] VITALS: Ht 157.5 cm; Wt 65.0 kg
[2017-07-10 14:36] VITALS: BP 119/74; PULSE 82; RESP 16; TEMP 98.6; O2SAT 98
[2017-07-10] MEDS ORDERED: ACETAMINOPHEN 325 MG TAB PO ONE (16:00)
[2017-07-10 16:16] LABS: BLOOD, URINE NEG (NEG); COMMENT (UR) CULT NOT INDICATED; CULTURE IF INDICATED CULT NOT INDICATED; GLUCOSE,URINE NEG (NEG); KETONE, URINE NEG (NEG); MUCUS URINE FEW /lpf (OCC); NITRITE,URINE NEG (NEG); PH, URINE 6.5 (5.0-8.5); SQUAMOUS EPITHELIAL CELL URINE <1 /hpf (0-5); URINE COLOR YELLOW (YELLW/STRAW)
[2017-07-10 16:25] LABS: BETA HCG QUANT LESS THAN 1 MIU/ML (0-5)
--- NOTE | 2017-07-10 16:27 | RADRPT ---
EXAM DATE/TIME: 07/10/2017 16:05 [facility] COMPARISON: CT ABDOMEN & PELVIS W/O CONTRAST, June 14, 2017, 12:15. INDICATIONS : Diffuse abdomen pain for two days. ORAL CONTRAST: No oral contrast ingested. RADIATION DOSE: 9.96 CTDIvol (mGy) MEDICAL HISTORY : None SURGICAL HISTORY : section. ENCOUNTER: Initial ACUITY: 2 days PAIN SCALE: 5/10 LOCATION: Bilateral abdomen TECHNIQUE: Volumetric scanning of the abdomen and pelvis was performed. Using automated exposure control and adjustment of the mA and/or kV according to patient size, radiation dose was kept as low as reasonably achievable to obtain optimal diagnostic quality images. DICOM format image data is av ailable electronically for review and comparison. FINDINGS: LOWER LUNGS: The visualized lower lungs are clear. LIVER: Homogeneous density without lesion. There is no dilation of the biliary tree. No calcifi ed gallstones. SPLEEN: Normal size without lesion. PANCREAS: Within normal limits. KIDNEYS: The kidneys are normal in size and shape with a punctate right-sided renal stone stable from prior exam. No evidence of hydronephrosis or concerning renal mass. ADRENAL GLANDS: Within normal limits. VASCULAR: There is no aortic aneurysm. BOWEL/MESENTERY: The stomach, small bowel, and colon demonstrate no acute abnormality. There is no free intraperitoneal air or fluid. ABDOMINAL WALL: There is stable stranding of the anterior abdominal pelvic wall at the site of pr ior . There is increased density within the adjacent pelvic mesenteric fat between the pelvi c wall and adjacent bladder and uterus suggestive of an area of adhesion. The lack of IV and oral con trast limits evaluation of the adnexa in this region however, there is a prominent fluid density stru cture identified adjacent to the lower uterine segment which may represent a follicle within the righ t ovary. RETROPERITONEUM: There is no lymphadenopathy. BLADDER: No wall thickening or mass. REPRODUCTIVE: Questionable bone follicle identified within the right adnexa. INGUINAL: There is no lymphadenopathy or hernia. MUSCULOSKELETAL: Within normal limits for patient age. CONCLUSION: 1. No evidence of inflammatory process within the abdomen or pelvis. 2. Stable punctate nonobstructing right-sided renal stone. 3. Evidence of prior with concern for an area of scarring indication between the anterior p elvic wall and adjacent uterus or bladder. Nini Lozoya MD on July 10, 2017 at 16:20 Board Certified Radiologist. This report was verified electronically.
[2017-07-10 16:39] LABS: AUTOMATED NEUTROPHIL # 1.9 TH/MM3 (1.8-7.7); BASOPHIL % 0.3 % (0.0-2.0); EOSINOPHIL # 0.1 TH/MM3 (0-0.4); HEMATOCRIT 34.4 % (35.0-46.0); HEMO FLAGS DIFF FINAL; LYMPH % 44.6 % (9.0-44.0); MEAN CELL VOLUME 78.7 FL (80.0-100.0); MEAN CORPUSCULAR HEMOGLOBIN 24.2 PG (27.0-34.0); MEAN CORPUSCULAR HGB CONC 30.7 % (32.0-36.0); MONO % 10.2 % (0.0-8.0); NEUT % 41.9 % (16.0-70.0); PLATELET COUNT 263 TH/MM3 (150-450); RED BLOOD COUNT 4.37 MIL/MM3 (4.00-5.30); RED CELL DISTRIBUTION WIDTH 19.9 % (11.6-17.2); WHITE BLOOD COUNT 4.4 TH/MM3 (4.0-11.0)
--- NOTE | 2017-07-10 16:50 | PD ---
HPI Chief Complaint: Abdominal Pain Time Seen by Provider: 15:40 Travel History International Travel<30 days: No Contact w/Intl Traveler<30days: No Traveled to known affect area: No History of Present Illness HPI 22-year-old female that presents to the ED for evaluation of abdominal pain. Per patient she's had this abdominal pain for the past couple days. Per patient she did a test yesterday and it was positive and she believes she could be . She did have an episode of bleeding yesterday but not today. Per patient she just had a baby about 2 months ago and has for it. She denies any urinary or bowel movement issues. No allergies to medication. Not taking anything for this. She reports that she was seen here about a month ago for similar. At the time she had a full workup that showed no sign of acute disease. She denies any vaginal discharge today. She states that her pain currently is 4 out of 10. She denies any other medical issues. No allergies to medication. PFSH Past Medical History Hx Anticoagulant Therapy: No Asthma: Yes Cardiovascular Problems: No Chemotherapy: No Chest Pain: Yes (occassionally ) Cerebrovascular Accident: No Developmental Delay: No Diabetes: No Diminished Hearing: No Medical other: Yes (CHRONIC BACK PAIN) Respiratory: Yes (ASTHMA) Immunizations Current: Yes ?: Unknown : 2 Para: 1 Miscarriage: 0 : 0 Past Surgical History Section: Yes Gynecologic Surgery: Yes ( X2) Hysterectomy: No Social History Alcohol Use: No Tobacco Use: Yes ( 1 cig EOD) Substance Use: Yes (MARIJUANA) Allergies-Medications (Allergen,Severity, Reaction): Coded Allergies: No Known Allergies (Unverified , 06/14/17) Reported Meds & Prescriptions Reported Meds & Active Scripts Active Diclofenac Sodium DR (Diclofenac Sodium) 75 Mg Tabdr 75 Mg PO BID PRN Review of Systems Except as stated in HPI: all other systems reviewed are Neg Physical Exam Narrative GENERAL: SKIN: Warm and dry. HEAD: Atraumatic. Normocephalic. EYES: Pupils equal and round. No scleral icterus. No injection or drainage. ENT: No nasal bleeding or discharge. Mucous membranes pink and moist. Tongue is midline. No uvula deviation. NECK: Trachea midline. No JVD. CARDIOVASCULAR: Regular rate and rhythm. No murmurs, S3, S4. RESPIRATORY: No accessory muscle use. Clear to auscultation. Breath sounds equal bilaterally. GASTROINTESTINAL: Abdomen soft, non-tender, nondistended. Hepatic and splenic margins not palpable. MUSCULOSKELETAL: Extremities without clubbing, cyanosis, or edema. No obvious deformities. Full range of motion of the upper and lower extremities bilaterally. 2+ pulses bilaterally. NEUROLOGICAL: Awake and alert. No obvious cranial nerve deficits. Motor grossly within normal limits. Five out of 5 muscle strength in the arms and legs. Normal speech. PSYCHIATRIC: Appropriate mood and affect; insight and judgment normal. Data Data Last Documented VS Vital Signs Date Time Temp Pulse Resp B/P (MAP) Pulse Ox O2 Delivery O2 Flow Rate FiO2 07/10/17 14:36 98.6 82 16 119/74 (89) 98 Room Air Orders Orders Beta Hcg (Quant/Titer) (07/10/17 15:40) Urinalysis - C+S If Indicated (07/10/17 15:40) Ed Urine Pregnancytest Poc (07/10/17 15:40) Complete Blood Count With Diff (07/10/17 15:50) Comprehensive Metabolic Panel (07/10/17 15:50) Iv Access Insert/Monitor (07/10/17 15:50) Lipase (07/10/17 15:50) Acetaminophen (Tylenol) (07/10/17 16:00) Ct Abd/Pel W/O Iv Contrast (07/10/17 15:56) Labs Laboratory Tests Test 07/10/17 15:55 White Blood Count 4.4 TH/MM3 Red Blood Count 4.37 MIL/MM3 Hemoglobin 10.6 GM/DL Hematocrit 34.4 % Mean Corpuscular Volume 78.7 FL Mean Corpuscular Hemoglobin 24.2 PG Mean Corpuscular Hemoglobin Concent 30.7 % Red Cell Distribution Width 19.9 % Platelet Count 263 TH/MM3 Mean Platelet Volume 9.2 FL Neutrophils (%) (Auto) 41.9 % Lymphocytes (%) (Auto) 44.6 % Monocytes (%) (Auto) 10.2 % Eosinophils (%) (Auto) 3.0 % Basophils (%) (Auto) 0.3 % Neutrophils # (Auto) 1.9 TH/MM3 Lymphocytes # (Auto) 2.0 TH/MM3 Monocytes # (Auto) 0.5 TH/MM3 Eosinophils # (Auto) 0.1 TH/MM3 Basophils # (Auto) 0.0 TH/MM3 CBC Comment DIFF FINAL Differential Comment Urine Color YELLOW Urine Turbidity CLEAR Urine pH 6.5 Urine Specific [place] 1.024 Urine Protein NEG mg/dL Urine Glucose (UA) NEG mg/dL Urine Ketones NEG mg/dL Urine Occult Blood NEG Urine Nitrite NEG Urine Bilirubin NEG Urine Urobilinogen 2.0 MG/DL Urine Leukocyte Esterase NEG Urine RBC 1 /hpf Urine WBC 1 /hpf Urine Squamous Epithelial Cells <1 /hpf Urine Mucus FEW /lpf Microscopic Urinalysis Comment CULT NOT INDICATED Blood Urea Nitrogen 10 MG/DL Creatinine 0.79 MG/DL Random Glucose 67 MG/DL Total Protein 7.4 GM/DL Albumin 3.6 GM/DL Calcium Level 8.4 MG/DL Alkaline Phosphatase 95 U/L Aspartate Amino Transf (AST/SGOT) 9 U/L Alanine Aminotransferase (ALT/SGPT) 15 U/L Total Bilirubin 0.2 MG/DL Sodium Level 141 MEQ/L Potassium Level 3.8 MEQ/L Chloride Level 109 MEQ/L Carbon Dioxide Level 26.2 MEQ/L Anion Gap 6 MEQ/L Estimat Glomerular Filtration Rate 111 ML/MIN Lipase 129 U/L Human Chorionic Gonadotropin, Quant LESS THAN 1 MIU/ML MDM Medical Decision Making Medical Screen Exam Complete: Yes Emergency Medical Condition: Yes Medical Record Reviewed: Yes Interpretation(s) CBC Diagram 07/10/17 15:55 Blood beta negative. BMP Diagram 07/10/17 15:55 Total Protein 7.4, Albumin 3.6, Calcium Level 8.4 L, Alkaline Phosphatase 95, Aspartate Amino Transf (AST/SGOT) 9 L, Alanine Aminotransferase (ALT/SGPT) 15, Total Bilirubin 0.2 lipase WNL Last Impressions Abdomen/Pelvis CT 07/10/17 1556 Signed Impressions: Service Date/Time: Wednesday, July 10, 2017 16:05 - CONCLUSION: 1. No evidence of inflammatory process within the abdomen or pelvis. 2. Stable punctate nonobstructing right-sided renal stone. 3. Evidence of prior C- section with concern for an area of scarring indication between the anterior pelvic wall and adjacent uterus or bladder. Nini Lozoya MD Differential Diagnosis Abdominal pain versus versus kidney stone versus UTI versus normal exam Narrative Course 22-year-old female that presents to the ED for evaluation of abdominal pain. Patient was properly examined and was found to have signs and symptoms of unclear etiology. He presented here was negative. Patient states that she had apparently does assisted that was positive. We'll do the blood test to confirm. Labs will be also done. I did review patient's medical records and she had a possible kidney stone on the right side. Her exam is very benign and she does not appear to be in a lot of pain. I did offer a pelvic exam for the patient but she declined. She understands that without this test I cannot fully diagnose her and could be missing important diagnosis. Labs and CT were ordered and showed what appears to be possible scanning. Otherwise unremarkable. No . At this time patient was reassured. Unclear etiology of abdominal pain but could be from the scar from the recent surgery. I recommend that the patient takes Tylenol or Motrin for pain. She was given a prescription for diclofenac sodium. Close follow up with PCP. See ED worsening symptoms. Diagnosis Primary Impression: Abdominal pain Qualified Codes: R10.33 - Periumbilical pain Patient Instructions: General Instructions Additional Instructions: Take medications as prescribed. Follow with PCP. See ED for any worsening symptoms. Med/Other Pt SpecificInfo: Prescription(s) given Scripts Diclofenac Sodium DR (Diclofenac Sodium DR) 75 Mg Tabdr 75 MG PO BID Y for PAIN SCALE 1 TO 10, #20 TAB 0 Refills Prov: Samia Allen MD 07/10/17 Disposition: 01 DISCHARGE HOME Condition: Stable Ash Joiner Jul 10, 2017 16:50
[2017-07-10 17:06] LABS: ANION GAP 6 MEQ/L (5-15); AST (GOT) 9 U/L (15-37); BICARBONATE 26.2 MEQ/L (21.0-32.0); BLOOD UREA NITROGEN 10 MG/DL (7-18); CHLORIDE 109 MEQ/L (98-107); GLOMERULAR FILTRATION RATE 111 ML/MIN (>89); POTASSIUM 3.8 MEQ/L (3.5-5.1); SODIUM (NA) 141 MEQ/L (136-145)
[2017-07-10 17:07] LABS: ALT (GPT) 15 U/L (10-53)
[2017-07-10 17:09] LABS: ALKALINE PHOSPHATASE 95 U/L (45-117); TOTAL BILIRUBIN ADULT 0.2 MG/DL (0.2-1.0)
[2017-07-10] MEDS ORDERED: DICL75TA PO (17:16)
== END 2017-07-10 18:47 | disposition home or self-care (01) ==
LOC: NEPE 14:32
DX: R10.33 Periumbilical pain (principal); Z72.0 Tobacco use; Z87.09 Personal history of other diseases of the respiratory system; Z87.39 Personal history of other diseases of the musculoskeletal system and connective tissue
CPT/HCPCS: 74176; 80053; 81001; 83690; 84702; 84703; 85025; 99284

== ENCOUNTER 2017-10-08 23:36 | Emergency (ER) | payer MEDICAID ==
[~2017-10-08] VITALS: Ht 157.5 cm; Wt 65.0 kg
[~2017-10-08 23:36] MED LIST changes: +DICL75TA PO; -IBUP-232 PO; -OXYC1TAB63 PO
[2017-10-08 23:38] VITALS: BP 128/83; PULSE 99; RESP 18; TEMP 98; O2SAT 98
[2017-10-09] MEDS ORDERED: ONDANSETRON HCL 4 MG/2 ML VIAL IVP ONE
[2017-10-09] MEDS ORDERED: MORPHINE SULFATE 4 MG/ML INJ IV PUSH ONE
[2017-10-09] MEDS ORDERED: SODIUM CHLORIDE 0.9% FLUSH 10 ML FLUSH IV FLUSH PRN
--- NOTE | 2017-10-09 | PD ---
HPI Chief Complaint: GI Complaint Time Seen by Provider: 23:58 Travel History International Travel<30 days: No Contact w/Intl Traveler<30days: No Traveled to known affect area: No History of Present Illness HPI Patient is a 22-year-old female presents with generalized severe abdominal pain starting today. She's also been having some nausea as well as nonbloody nonbilious emesis. No other sick contacts. No fevers. Only medical problem is asthma no vaginal bleeding or vaginal discharge. PFSH Past Medical History Hx Anticoagulant Therapy: No Asthma: Yes Cardiovascular Problems: No Chemotherapy: No Chest Pain: Yes (occassionally ) Cerebrovascular Accident: No Developmental Delay: No Diabetes: No Diminished Hearing: No Respiratory: Yes (ASTHMA) Immunizations Current: Yes ?: Unknown LMP: OCT 03, 2017 : 2 Para: 2 Miscarriage: 0 : 0 Past Surgical History Section: Yes Gynecologic Surgery: Yes ( X2) Hysterectomy: No Social History Alcohol Use: No Tobacco Use: Yes ( 1 cig EOD) Substance Use: Yes (MARIJUANA) Allergies-Medications (Allergen,Severity, Reaction): Coded Allergies: No Known Allergies (Unverified Adverse Reaction, Unknown, 10/08/17) Reported Meds & Prescriptions Reported Meds & Active Scripts Active Zofran (Ondansetron HCl) 4 Mg Tab 4 Mg PO Q6HR PRN Ultram (Tramadol HCl) 50 Mg Tab 50 Mg PO Q6H PRN Diclofenac Sodium DR (Diclofenac Sodium) 75 Mg Tabdr 75 Mg PO BID PRN Review of Systems Except as stated in HPI: all other systems reviewed are Neg Physical Exam Narrative GENERAL: Well-developed well-nourished, appears uncomfortable. SKIN: Focused skin assessment warm/dry. HEAD: Atraumatic. Normocephalic. EYES: Pupils equal and round. No scleral icterus. No injection or drainage. ENT: No nasal bleeding or discharge. Mucous membranes pink and moist. NECK: Trachea midline. No JVD. CARDIOVASCULAR: Regular rate and rhythm. No murmur appreciated. RESPIRATORY: No accessory muscle use. Clear to auscultation. Breath sounds equal bilaterally. GASTROINTESTINAL: Abdomen soft, fairly tender throughout all quadrants with voluntary guarding, nondistended. Hepatic and splenic margins not palpable. Psoas and obturator signs negative. MUSCULOSKELETAL: No obvious deformities. No clubbing. No cyanosis. No edema. NEUROLOGICAL: Awake and alert. No obvious cranial nerve deficits. Motor grossly within normal limits. Normal speech. PSYCHIATRIC: Appropriate mood and affect; insight and judgment normal. Data Data Last Documented VS Vital Signs Date Time Temp Pulse Resp B/P (MAP) Pulse Ox O2 Delivery O2 Flow Rate FiO2 10/09/17 02:22 10/08/17 23:38 98.0 99 18 98 Orders Orders Beta Hcg (Quant/Titer) (10/08/17 23:56) Complete Blood Count With Diff (10/08/17 23:56) Comprehensive Metabolic Panel (10/08/17 23:56) Lipase (10/08/17 23:56) Prothrombin Time / Inr (Pt) (10/08/17:56) Act Partial Throm Time (Ptt) (10/08/17:56) Urinalysis - C+S If Indicated (10/08/17 23:56) Iv Access Insert/Monitor (10/08/17 23:56) Ecg Monitoring (10/08/17:56) Oximetry (10/08/17 23:56) Morphine Inj (Morphine Inj) (10/09/17 00:00) Ondansetron Inj (Zofran Inj) (10/09/17 00:00) Sodium Chloride 0.9% Flush (Ns Flush) (10/09/17 00:00) Ed Urine Pregnancytest Poc (10/08/17 23:56) Ed Discharge Order (10/09/17 02:09) Labs Laboratory Tests Test 10/09/17 00:05 White Blood Count 10.9 TH/MM3 Red Blood Count 4.36 MIL/MM3 Hemoglobin 10.7 GM/DL Hematocrit 34.0 % Mean Corpuscular Volume 78.1 FL Mean Corpuscular Hemoglobin 24.5 PG Mean Corpuscular Hemoglobin Concent 31.4 % Red Cell Distribution Width 18.9 % Platelet Count 375 TH/MM3 Mean Platelet Volume 8.9 FL Neutrophils (%) (Auto) 67.4 % Lymphocytes (%) (Auto) 20.6 % Monocytes (%) (Auto) 9.8 % Eosinophils (%) (Auto) 1.7 % Basophils (%) (Auto) 0.5 % Neutrophils # (Auto) 7.4 TH/MM3 Lymphocytes # (Auto) 2.3 TH/MM3 Monocytes # (Auto) 1.1 TH/MM3 Eosinophils # (Auto) 0.2 TH/MM3 Basophils # (Auto) 0.1 TH/MM3 CBC Comment DIFF FINAL Differential Comment Prothrombin Time 10.2 SEC Prothromb Time International Ratio 0.9 RATIO Activated Partial Thromboplast Time 27.3 SEC Urine Color YELLOW Urine Turbidity CLEAR Urine pH 5.5 Urine Specific Moore 1.029 Urine Protein TRACE mg/dL Urine Glucose (UA) NEG mg/dL Urine Ketones NEG mg/dL Urine Occult Blood SMALL Urine Nitrite NEG Urine Bilirubin NEG Urine Urobilinogen LESS THAN 2.0 MG/DL Urine Leukocyte Esterase NEG Urine RBC LESS THAN 1 /hpf Urine WBC 1 /hpf Urine Squamous Epithelial Cells 10 /hpf Urine Bacteria RARE /hpf Urine Mucus FEW /lpf Microscopic Urinalysis Comment CULT NOT INDICATED Blood Urea Nitrogen 21 MG/DL Creatinine 0.76 MG/DL Random Glucose 92 MG/DL Total Protein 8.1 GM/DL Albumin 3.9 GM/DL Calcium Level 9.0 MG/DL Alkaline Phosphatase 84 U/L Aspartate Amino Transf (AST/SGOT) 13 U/L Alanine Aminotransferase (ALT/SGPT) 23 U/L Total Bilirubin 0.1 MG/DL Sodium Level 142 MEQ/L Potassium Level 4.0 MEQ/L Chloride Level 108 MEQ/L Carbon Dioxide Level 26.3 MEQ/L Anion Gap 8 MEQ/L Estimat Glomerular Filtration Rate 116 ML/MIN Lipase 122 U/L Human Chorionic Gonadotropin, Quant LESS THAN 1 MIU/ML MDM Medical Decision Making Medical Screen Exam Complete: Yes Emergency Medical Condition: Yes Differential Diagnosis Acute abdomen, , gastritis, gastroenteritis, pancreatitis, cholecystitis, appendicitis. Narrative Course Patient was roomed in emergency department, appears uncomfortable on arrival she was given morphine and Zofran. Basic labs were reassuring. Showing only mild anemia. No definitive cause of her abdominal pain is been identified but on repeat examination the patient has a completely benign abdomen and is comfortable appearing. I recommended that she have a pelvic exam and she is declining stating she would rather follow-up the primary care physician. I discussed with her the ramifications of possible ovarian torsion including infertility and need for surgery she verbalized understanding and declined to have a pelvic exam. At this time with a benign abdomen I discussed the risks of radiation versus the pretest possibility of a CAT scan and she declined a CAT scan at this time as well. She is feeling well enough to go home. I discussed symptomatic management home and returned ED criteria and she was welcome to return tumor department anytime for consideration of further examination and testing. She opts to go home at this time. Given the benign nature of her abdomen she is stable to go home. Diagnosis Primary Impression: Abdominal pain Qualified Codes: R10.84 - Generalized abdominal pain Med/Other Pt SpecificInfo: Prescription(s) given Scripts Ondansetron (Zofran) 4 Mg Tab 4 MG PO Q6HR Y for NAUSEA OR VOMITING, #20 TAB 0 Refills Prov: Jaylen Ortiz MD 10/09/17 Tramadol (Ultram) 50 Mg Tab 50 MG PO Q6H Y for PAIN, #10 TAB 0 Refills Prov: Jaylen Ortiz MD 10/09/17 Disposition: 01 DISCHARGE HOME Condition: Stable Jaylen Ortiz MD Oct 09, 2017 00:00
[2017-10-09 00:45] LABS: AUTOMATED NEUTROPHIL # 7.4 TH/MM3 (1.8-7.7); BASOPHIL # 0.1 TH/MM3 (0-0.2); BASOPHIL % 0.5 % (0.0-2.0); EOSINOPHIL # 0.2 TH/MM3 (0-0.4); EOSINOPHIL % 1.7 % (0.0-4.0); HEMO FLAGS DIFF FINAL; LYMPH % 20.6 % (9.0-44.0); LYMPHOCYTE # 2.3 TH/MM3 (1.0-4.8); MEAN CELL VOLUME 78.1 FL (80.0-100.0); MEAN CORPUSCULAR HEMOGLOBIN 24.5 PG (27.0-34.0); MEAN CORPUSCULAR HGB CONC 31.4 % (32.0-36.0); MONO % 9.8 % (0.0-8.0); NEUT % 67.4 % (16.0-70.0); PLATELET COUNT 375 TH/MM3 (150-450); RED BLOOD COUNT 4.36 MIL/MM3 (4.00-5.30); RED CELL DISTRIBUTION WIDTH 18.9 % (11.6-17.2); WHITE BLOOD COUNT 10.9 TH/MM3 (4.0-11.0)
[2017-10-09 00:48] LABS: BACTERIA, URINE RARE /hpf; BLOOD, URINE SMALL (NEG); COMMENT (UR) CULT NOT INDICATED; CULTURE IF INDICATED CULT NOT INDICATED; GLUCOSE,URINE NEG (NEG); KETONE, URINE NEG (NEG); MUCUS URINE FEW /lpf (OCC); NITRITE,URINE NEG (NEG); PH, URINE 5.5 (5.0-8.5); SQUAMOUS EPITHELIAL CELL URINE 10 /hpf (0-5); URINE COLOR YELLOW (YELLW/STRAW)
[2017-10-09 00:54] LABS: APTT (PATIENT) 27.3 SEC (24.3-30.1); INTERNATIONAL NORMALIZED RATIO 0.9 RATIO; PROTHROMBIN TIME - PATIENT 10.2 SEC (9.8-11.6)
[2017-10-09 01:02] LABS: ALT (GPT) 23 U/L (10-53); ANION GAP 8 MEQ/L (5-15); AST (GOT) 13 U/L (15-37); BICARBONATE 26.3 MEQ/L (21.0-32.0); BLOOD UREA NITROGEN 21 MG/DL (7-18); CHLORIDE 108 MEQ/L (98-107); GLOMERULAR FILTRATION RATE 116 ML/MIN (>89); SODIUM (NA) 142 MEQ/L (136-145)
[2017-10-09 01:07] LABS: ALKALINE PHOSPHATASE 84 U/L (45-117); BETA HCG QUANT LESS THAN 1 MIU/ML (0-5); TOTAL BILIRUBIN ADULT 0.1 MG/DL (0.2-1.0)
[2017-10-09] MEDS ORDERED: TRAM50 PO (02:09)
[2017-10-09] MEDS ORDERED: ZOFR4TAB PO (02:09)
== END 2017-10-09 02:46 | disposition home or self-care (01) ==
LOC: NEPC 23:36
DX: R10.84 Generalized abdominal pain (principal); R11.2 Nausea with vomiting, unspecified; D64.9 Anemia, unspecified; J45.909 Unspecified asthma, uncomplicated; F17.210 Nicotine dependence, cigarettes, uncomplicated; Z79.899 Other long term (current) drug therapy
CPT/HCPCS: 80053; 81001; 83690; 84702; 84703; 85025; 85610; 85730; 96374; 96375; 99284; J2270; J2405